=== PATIENT | female | born 1970 | race Caucasian/White ===

== ENCOUNTER → 2018-09-07 | Emergency (ER) | payer MEDICAID ==
[~2018-09-07] VITALS: Ht 165.1 cm; Wt 88.0 kg
[~2018-09-07] MED LIST: ALPR-624 PO; ATOR20TA PO; BUPR300T53 PO; BUSP15TA3 PO; BUTA-259 PO; CEPH500C5 PO; CYCL-1 PO; FLUO40CA10 PO; LIDOcaine 1% 30ml preserv. free vial IJ ONE; OMEP20CA10 PO; PER10325T PO; TETanus/Pertussis (Acell)/Diphther VAC/PF (Tdap-Adult) 0.5ml syringe IM ONE
[2018-09-07 13:16] VITALS: BP 180/91
== END | disposition home or self-care (01) ==
LOC: ER 13:15
DX: S92.535A Nondisplaced fracture of distal phalanx of left lesser toe(s), initial encounter for closed fracture (principal); S92.525A Nondisplaced fracture of middle phalanx of left lesser toe(s), initial encounter for closed fracture; S91.115A Laceration without foreign body of left lesser toe(s) without damage to nail, initial encounter; G43.909 Migraine, unspecified, not intractable, without status migrainosus; M19.90 Unspecified osteoarthritis, unspecified site; G89.29 Other chronic pain; Z56.0 Unemployment, unspecified; Z79.899 Other long term (current) drug therapy; W20.8XXA Other cause of strike by thrown, projected or falling object, initial encounter; Y93.89 Activity, other specified; Y92.89 Other specified places as the place of occurrence of the external cause; Y99.9 Unspecified external cause status
CPT/HCPCS: 12001; 73660; 90471; 90715; 99283; J3490